=== PATIENT | female | born 1950 | race Caucasian/White ===

== ENCOUNTER 2017-02-12 11:21 | Inpatient (IN) | payer MEDICARE, BC ==
[~2017-02-12] VITALS: Ht 163.3 cm; Wt 96.4 kg
[2017-02-18] MEDS ORDERED: PANT40TA3 PO (12:09)
[2017-02-18] MEDS ORDERED: ASPI1TAB69 PO (12:09)
[2017-02-18] MEDS ORDERED: ZYRT10CA PO (12:09)
[2017-02-18] MEDS ORDERED: ZOCO20TA PO (12:09)
[2017-02-18] MEDS ORDERED: OMEG100037 PO (12:09)
[2017-02-18] MEDS ORDERED: MULTCAP13 PO (12:09)
[2017-02-18] MEDS ORDERED: TYLE650T9 PO (12:09)
[2017-03-11] MEDS ORDERED: HYDR-3288 PO (06:55)
[2017-03-11] MEDS ORDERED: ENOX40P SQ (06:56)
[2017-03-11] MEDS ORDERED: ASPI81CH37 CHEW (06:57)
[2017-03-11] MEDS ORDERED: ALUMINUM/MAGNESIUM/SIMETH 30 ML CUP PO PRN (07:00)
[2017-03-11] MEDS ORDERED: ACETAMINOPHEN/HYDROcodone 325 MG/7.5 MG TAB PO PRN (07:00)
[2017-03-11] MEDS ORDERED: ONDANSETRON HCL 4 MG/2 ML VIAL IVP PRN (07:00)
[2017-03-11] MEDS ORDERED: HYDROmorphone HCL PF 2 MG/ML VIAL IV PRN (07:00)
[2017-03-11] MEDS ORDERED: BISACODYL 10 MG SUPP RECTAL PRN (07:00)
[2017-03-11] MEDS ORDERED: Post-op Orders (for Pharmacy) MISC XX ONE (07:00)
[2017-03-11] MEDS ORDERED: SODIUM CHLORIDE 0.9% FLUSH 5 ML FLUSH IVF PRN (07:00)
[2017-03-11] MEDS ORDERED: PANTOPRAZOLE SOD 40 MG DELAYED RELEASE TAB PO PRN (07:00)
[2017-03-11] MEDS ORDERED: NALOXONE HCL 0.4 MG/ML AMP IV PRN (07:00)
[2017-03-11] MEDS ORDERED: ZOLPIDEM TARTRATE 5 MG TAB PO PRN (07:00)
[2017-03-11] MEDS ORDERED: POVIDONE IODINE 7.5% SCRUB 118 ML BOTTLE TOPICAL SCH (07:30)
[2017-03-11] MEDS ORDERED: TRANEXAMIC PERI-ARTICULAR 3,000 MG/NS 100 ML P-ARTICULR SCH ×2 (07:30)
[2017-03-11] MEDS ORDERED: ROPIVACAINE PERI-ARTICULAR INJECTION. P-ARTICULR SCH ×5 (07:30)
[2017-03-11] MEDS ORDERED: ceFAZolin 2 GM PREMIX 50 ML IV SCH (07:30)
[2017-03-11] MEDS ORDERED: SODIUM CHLORIDE 0.9% IV SCH (07:30)
[2017-03-11] MEDS ORDERED: VANCOMYCIN 1000 MG/NS 250 ML (for <70 kg) IV SCH ×2 (07:30)
[2017-03-11] MEDS ORDERED: TRANEXAMIC ACID IV SCH (07:30)
[2017-03-11] MEDS ORDERED: CHLORHEXIDINE GLUCONATE 4% SOLN 120 ML BTL TOPICAL SCH (07:30)
[2017-03-11] MEDS ORDERED: LACTATED RINGER'S 1000 ML IV PRN (07:45)
[2017-03-11] MEDS ORDERED: DEXAMETHASONE SOD PHOS 20 MG/5 ML VIAL IV ONE (07:45)
[2017-03-11] MEDS ORDERED: INSULIN HUMAN REGULAR 1,000 UNITS/10 ML VIAL SQ PRN (07:45)
[2017-03-11] MEDS ORDERED: SODIUM CHLORID 0.9% 500 ML IV PRN (07:45)
[2017-03-11] MEDS ORDERED: CHLORHEXIDINE GLUCONATE 2 % 1 PACK (2 CLOTHS) TOPICAL PRN (07:45)
[2017-03-11] MEDS ORDERED: METOPROLOL TARTRATE 25 MG TAB PO PRN (07:45)
[2017-03-11] MEDS ORDERED: POVIDONE IODINE 5% (ANTISEPSIS KIT) 4 APPLICATIONS EACH NARE PRN (07:45)
[2017-03-11] MEDS: SODIUM CHLOR 0.9% 1000 ML INJ 1,000 ML IV SCH ×3 (08:00→19:27)
[2017-03-11] MEDS ORDERED: GENTAMICIN SULFATE 80 MG/2 ML VIAL ONE (08:03)
[2017-03-11 08:06] VITALS: BP 117/72; PULSE 72; RESP 16; TEMP 98.4; O2SAT 96
[2017-03-11] MEDS ORDERED: CLINDAMYCIN INJ 900 MG in SODIUM CHLORIDE 0.9% INJ 100 ML IV SCH (08:15)
[2017-03-11] MEDS ORDERED: SODIUM CHLORIDE 0.9% INJ 100 ML ONE (08:38)
[2017-03-11] MEDS ORDERED: ONDANSETRON HCL 4 MG/2 ML VIAL IV PUSH ONE (09:40)
[2017-03-11] MEDS ORDERED: NEOSTIGMINE 3 MG/3 ML SYR IV ONE (09:40)
[2017-03-11] MEDS ORDERED: PROPOFOL 200 MG/20 ML AMP IV ONE (09:40)
[2017-03-11] MEDS ORDERED: fentaNYL CITRATE 250 MCG/5 ML AMP ONE (09:50)
[2017-03-11] MEDS ORDERED: ACETAMINOPHEN 1000 MG/100 ML VIAL IV ONE (09:50)
[2017-03-11] MEDS ORDERED: FAMOTIDINE 20 MG/2 ML VIAL ONE (09:50)
[2017-03-11] MEDS ORDERED: MIDAZOLAM HCL 2 MG/2 ML VIAL ONE (09:50)
[2017-03-11] MEDS ORDERED: DEXAMETHASONE SOD PHOS 4 MG/ML VIAL ONE (09:51)
[2017-03-11] MEDS ORDERED: BUPIVACAINE LIPOSOME PF 1.3% 20 ML VIAL NERV BLOCK ONE (12:04)
[2017-03-11] MEDS ORDERED: DO NOT ADM ANY ANTICOAGULANT DRUGS PRN (12:25)
[2017-03-11] MEDS ORDERED: MORPHINE SULFATE 4 MG/ML INJ ONE ×2 (12:36)
[2017-03-11] MEDS ORDERED: *morphine SULFATE 8 MG/ML PERIprocedure ONLY ONE (12:37)
[2017-03-11] MEDS ORDERED: *HYDROmorphone PF 1 MG VIAL PERIprocedural Use ONLY ONE ×3 (12:48→13:35)
--- NOTE | 2017-03-11 13:08 | HHI.DCPOC ---
Discharge Care Plan Diagnosis: (1) Primary localized osteoarthrosis, lower leg Your Health Problems Are: Difficulty with ADL Goals to Promote Your Health * To prevent worsening of your condition and complications * To maintain your health at the optimal level Directions to Meet Your Goals Take your medications as prescribed Follow your dietary instruction Follow activity as directed Keep your appointments as scheduled Take your immunizations and boosters as scheduled If your symptoms worsen call your PCP, if no PCP go to Urgent Care Center or Emergency Room Smoking is Dangerous to Your Health. Avoid second hand smoke Call the 24-hour hour crisis hotline for domestic abuse at [facility] March 11, 2017 13:08
--- NOTE | 2017-03-11 13:09 | HHI.FF ---
Face to Face Verification Diagnosis: (1) Primary localized osteoarthrosis, lower leg Physical Therapy Gait training, Safety evaluation, Transfer training, bed to chair Knee: Total knee, Protocol: Left, Full weight bearing Left LE Weight Bearing: WB as tolerated Nursing RN: 3 days/week x 2 weeks Nursing: Samantha teaching, Dressing changes Dressing Changes: Daily dressing change I have seen patient Rebecca Rasheed on 03/11/17. My clinical findings support the need for the requested home health care services because: Limited ability to care for self High risk of falls I certify that my clinical findings support that this patient is homebound because: Post-op weakness Unsteady gait/balance [facility] March 11, 2017 13:09
[2017-03-11] MEDS ORDERED: COMMODE 3-IN-11 MIS (13:11)
[2017-03-11] MEDS ORDERED: WALKER WHEELS/F1 MIS (13:11)
[2017-03-11] MEDS ORDERED: CPMMACHINE (13:11)
--- NOTE | 2017-03-11 13:28 | PD.CONS ---
[facility] By Reason for Consult medical management Primary Care Physician No Primary Care Physician Diagnoses: History of Present Illness patient is a 66 y/o female with osteoarthritis of the left knee underwent left total knee arthroplasty today. at the time of my evaluation she was complaining of moderate pain to the left knee and mild dizziness. otherwise no other complaints including chest pain, sob, nausea. Review of Systems Constitutional: COMPLAINS OF: Dizziness, DENIES: Fever, Weight loss, Chills, Night Sweats Eyes: DENIES: Blurred vision, Diplopia, Vision loss, Double Vision Ears, nose, mouth, throat: DENIES: Tinnitus, Vertigo, Throat pain, Epistaxis Respiratory: DENIES: Apneas, Cough, Snoring, Wheezing, Hemoptysis, Sputum production, Shortness of breath Cardiovascular: DENIES: Chest pain, Palpitations, Syncope, Dyspnea on Exertion , PND, Lower Extremity Edema, Orthopnea, Claudication Gastrointestinal: DENIES: Abdominal pain, Black stools, Bloody stools, Constipation, Diarrhea, Nausea, Vomiting, Difficulty Swallowing, Anorexia Genitourinary: DENIES: Urinary frequency, Urgency, Hematuria, Dysuria Musculoskeletal: COMPLAINS OF: Joint pain (left knee), DENIES: Muscle aches, Stiffness, Joint Swelling Integumentary: DENIES: Rash Neurologic: DENIES: Abnormal gait, Headache, Localized weakness, Paresthesias, Seizures, Speech Problems, Tremor, Poor Balance Psychiatric: DENIES: Anxiety, Confusion, Mood changes, Depression, Hallucinations, Agitation, Suicidal Ideation, Homicidal Ideation, Delusions Past Family Social History Allergies: Coded Allergies: Bromfed DM (Verified Allergy, Severe, RASH, 03/11/17) Lamisil (Verified Allergy, Severe, RASH, 03/11/17) Omnicef (Verified Allergy, Severe, RASH, 03/11/17) Zantac (Verified Allergy, Severe, RASH, 03/11/17) Past Medical History dyslipidemia osteoarthritis Past Surgical History zocor zyrtec Reported Medications Current Medications Pantoprazole Sodium 40 mg 40 mg DAILY PRN PO REFLUX; Start 03/11/17 at 07:00 Sodium Chloride (NS 1000 ml Inj) 1,000 ml @ 100 mls/hr Q10H IV Last administered on 03/11/17t 12:55; Start 03/11/17 at 06:52 IV Flush (NS Flush) 2 ml UNSCH PRN IVF FLUSH AFTER USING IV ACCESS; Start at 07:00 IV Flush 2 ml 2 ml BID IVF ; Start 03/11/17 at 09:00 Clindamycin Phosphate/Sodium Chloride (Cleocin Inj/NS Inj) 106 ml @ 212 mls/hr Q8H IV ; Start 03/11/17 at 17:00; Stop 03/12/17 at 09:29 Miscellaneous Information (Post-op Orders (for Pharmacy)) STAT ONCE XX ; Start 03/11/17 at 07:00; Stop 03/11/17 at 13:04; Status DC Enoxaparin Sodium (Lovenox Inj) 40 mg Q24H SQ ; Start 03/12/17 at 11:30; Stop 09/27 at 11:31 Hydromorphone HCl (Dilaudid Pf Inj) 1 mg Q3H PRN IV PAIN GREATER THAN 7; Start 03/11/17 at 07:00 Acetaminophen/ Hydrocodone Bitart (Mascot 7.5-325 Mg) 1 tab Q4H PRN PO PAIN LESS THAN 5 ON SCALE; Start 03/11/17 at 07:00 Acetaminophen/ Hydrocodone Bitart (Mascot 7.5-325 Mg) 2 tab Q4H PRN PO PAIN SCALE 5 TO 10; Start 03/11/17 at 07:00 Multivitamins/ Minerals Therapeutic (Theragran M Tab) 1 tab BID PO ; Start at 21:00; Stop 05/11/17 at 20:59 Ondansetron HCl (Zofran Inj) 4 mg Q6H PRN IVP NAUSEA OR VOMITING; Start at 07:00 Docusate Sodium (Colace) 100 mg BID PO ; Start 03/12/17 at 21:00 Al Hydrox/Mg Hydrox/Simethicone (Mag-Al Plus Susp Liq) 30 ml Q6H PRN PO INDIGESTION; Start 03/11/17 at 07:00 Zolpidem Tartrate (Ambien) 5 mg HS PRN PO SLEEP; Start 03/11/17 at 07:00 Bisacodyl (Dulcolax Supp) 10 mg DAILY PRN RECTAL CONSTIPATION; Start 03/11/17 at 07:00 Naloxone HCl (Narcan Inj) 0.4 mg UNSCH PRN IV RESPIRATORY RATE LESS THAN 10; Start 03/11/17 at 07:00 Diphenhydramine HCl (Benadryl Inj) 25 mg Q6H PRN IV ITCHING; Start 03/11/17 at 07:00 Povidone Iodine (Betadine 7.5% Scrub) 1 applic ONCE TOPICAL ; Start 03/11/17 at 07:30; Stop 03/14/17 at 07:29 Chlorhexidine Gluconate 1 applic 1 applic ONCE TOPICAL ; Start 03/11/17 at 07:30 ; Stop 03/14/17 at 07:29 Cefazolin Sodium/ Dextrose 50 ml @ 100 mls/hr PROJECT/PRODUCTION MANAGER IMAGING IV ; Start 03/11/17 at 07 :30; Stop 03/11/17 at 08:07; Status DC Vancomycin HCl 1000 mg/Sodium Chloride 250 ml @ 250 mls/hr PROJECT/PRODUCTION MANAGER IMAGING IV Last administered on 03/11/17 09:08; Start 03/11/17 at 07:30; Stop 03/14/17 at 07:29 Tranexamic Acid 1359 mg/Sodium Chloride 113.59 ml @ 200 mls/ hr ONCE IV Last administered on 03/11/17 10:14; Start 03/11/17 at 07:30; Stop 03/11/17 at 16:00 Ropivacaine 24.63 ml/Ketorolac Tromethamine 30 mg/Epinephrine HCl 0.5 mg/ Clonidine 80 mcg/ Sodium Chloride 100 ml @ 200 mls/hr ONCE P-ARTICULR Last administered on 03/11/17 11:10; Start 03/11/17 at 07:30; Stop 03/12/17 at 07:29 Tranexamic Acid/ Sodium Chloride (Cyklokapron Inj/ NS Inj) 130 ml @ 260 mls/hr ONCE P-ARTICULR Last administered on 03/11/17 11:11; Start 03/11/17 at 07:30; Stop 03/12/17 at 07:29 Dexamethasone Sodium Phosphate 10 mg 10 mg ONCE ONCE IV Last administered on 08:25; Start 03/11/17 at 07:45; Stop 03/11/17 at 07:46; Status DC Lactated Ringer's 1,000 ml @ 30 mls/hr Q24H PRN IV SEE LABEL COMMENTS; Start at 07:45; Stop 03/11/17 at 13:06; Status DC Sodium Chloride (NS 500 ml Inj) 500 ml @ 30 mls/hr [id number] PRN IV SEE LABEL COMMENTS; Start 03/11/17 at 07:45; Stop 03/11/17 at 13:06; Status DC Metoprolol Tartrate (Lopressor) 25 mg PROJECT/PRODUCTION MANAGER IMAGING PRN PO SEE LABEL COMMENTS; Start 03/11/17 at 07:45; Stop 03/14/17 at 07:44 Povidone Iodine (Betadine 5% Antisepsis Kit) 1 applic PROJECT/PRODUCTION MANAGER IMAGING PRN EACH NARE SEE LABEL COMMENTS; Start 03/11/17 at 07:45; Stop 03/14/17 at 07:44 Chlorhexidine Gluconate (Chlorhexidine 2% Cloth) 3 pack PROJECT/PRODUCTION MANAGER IMAGING PRN TOPICAL SEE LABEL COMMENTS; Start 03/11/17 at 07:45; Stop 03/14/17 at 07:44 Insulin Human Regular (NovoLIN R INJ) See Protocol Table ... PROJECT/PRODUCTION MANAGER IMAGING PRN SQ SEE PROTOCOL TABLE; Start 03/11/17 at 07:45; Stop 03/14/17 at 07:44 Gentamicin Sulfate 240 mg 240 mg STK-MED ONCE .ROUTE Last administered on t 11:10; Start 03/11/17 at 08:03; Stop 03/11/17 at 08:05; Status DC Clindamycin Phosphate 900 mg/ Sodium Chloride 106 ml @ 212 mls/hr PROJECT/PRODUCTION MANAGER IMAGING IV Last administered on 03/11/17t 09:00; Start 03/11/17 at 08:15 Sodium Chloride (NS Inj) 100 ml @ As Directed STK-MED ONCE .ROUTE ; Start at 08:38; Stop 03/11/17 at 08:39; Status DC Acetaminophen (Ofirmev Inj) 1,000 mg STK-MED ONCE IV ; Start 03/11/17 at 09:50; Stop 03/11/17 at 09:51; Status DC Famotidine (Pepcid Inj) 20 mg STK-MED ONCE .ROUTE ; Start 03/11/17 at 09:50; Stop 03/11/17 at 09:51; Status DC Midazolam HCl (Versed Inj) 2 mg STK-MED ONCE .ROUTE ; Start 03/11/17 at 09:50; Stop 03/11/17 at 09:51; Status DC Fentanyl Citrate (fentaNYL INJ) 250 mcg STK-MED ONCE .ROUTE ; Start 03/11/17 at 09:50; Stop 03/11/17 at 09:51; Status DC Dexamethasone Sodium Phosphate (Decadron Inj) 4 mg STK-MED ONCE .ROUTE ; Start 03/11/17 at 09:51; Stop 03/11/17 at 09:52; Status DC Morphine Sulfate (Morphine Inj) 4 mg STK-MED ONCE .ROUTE ; Start 03/11/17 at 12: 36; Stop 03/11/17 at 12:37; Status DC Morphine Sulfate (Morphine Inj) 4 mg STK-MED ONCE .ROUTE ; Start 03/11/17 at 12: 36; Stop 03/11/17 at 12:37; Status DC Morphine Sulfate (*morphine INJ PERIprocedure ONLY) 8 mg STK-MED ONCE .ROUTE Last administered on 03/11/17 12:39; Start 03/11/17 at 12:37; Stop 03/11/17 at 12: 38; Status DC Hydromorphone HCl (*DILAUDID PF INJ PERIprocedural ONLY) 1 mg STK-MED ONCE .ROUTE Last administered on 03/11/17 12:49; Start 03/11/17 at 12:48; Stop at 12:49; Status DC Hydromorphone HCl (*DILAUDID PF INJ PERIprocedural ONLY) 1 mg STK-MED ONCE .ROUTE Last administered on 03/11/17 13:00; Start 03/11/17 at 12:59; Stop at 13:00; Status DC Miscellaneous Information ALL NURSING DEPARTME... UNSCH PRN .XX SEE LABEL COMMENTS; Start 03/11/17 at 12:25; Stop 03/12/17 at 12:24 Active Ordered Medications Current Medications Pantoprazole Sodium 40 mg 40 mg DAILY PRN PO REFLUX; Start 03/11/17 at 07:00 Sodium Chloride (NS 1000 ml Inj) 1,000 ml @ 100 mls/hr Q10H IV Last administered on 03/11/17 12:55; Start 03/11/17 at 06:52 IV Flush (NS Flush) 2 ml UNSCH PRN IVF FLUSH AFTER USING IV ACCESS; Start at 07:00 IV Flush 2 ml 2 ml BID IVF ; Start 03/11/17 at 09:00 Clindamycin Phosphate/Sodium Chloride (Cleocin Inj/NS Inj) 106 ml @ 212 mls/hr Q8H IV ; Start 03/11/17 at 17:00; Stop 03/12/17 at 09:29 Miscellaneous Information (Post-op Orders (for Pharmacy)) STAT ONCE XX ; Start 03/11/17 at 07:00; Stop 03/11/17 at 13:04; Status DC Enoxaparin Sodium (Lovenox Inj) 40 mg Q24H SQ ; Start 03/12/17 at 11:30; Stop 09/27 at 11:31 Hydromorphone HCl (Dilaudid Pf Inj) 1 mg Q3H PRN IV PAIN GREATER THAN 7; Start 03/11/17 at 07:00 Acetaminophen/ Hydrocodone Bitart (Mascot 7.5-325 Mg) 1 tab Q4H PRN PO PAIN LESS THAN 5 ON SCALE; Start 03/11/17 at 07:00 Acetaminophen/ Hydrocodone Bitart (Mascot 7.5-325 Mg) 2 tab Q4H PRN PO PAIN SCALE 5 TO 10; Start 03/11/17 at 07:00 Multivitamins/ Minerals Therapeutic (Theragran M Tab) 1 tab BID PO ; Start at 21:00; Stop 05/11/17 at 20:59 Ondansetron HCl (Zofran Inj) 4 mg Q6H PRN IVP NAUSEA OR VOMITING; Start at 07:00 Docusate Sodium (Colace) 100 mg BID PO ; Start 03/12/17 at 21:00 Al Hydrox/Mg Hydrox/Simethicone (Mag-Al Plus Susp Liq) 30 ml Q6H PRN PO INDIGESTION; Start 03/11/17 at 07:00 Zolpidem Tartrate (Ambien) 5 mg HS PRN PO SLEEP; Start 03/11/17 at 07:00 Bisacodyl (Dulcolax Supp) 10 mg DAILY PRN RECTAL CONSTIPATION; Start 03/11/17 at 07:00 Naloxone HCl (Narcan Inj) 0.4 mg UNSCH PRN IV RESPIRATORY RATE LESS THAN 10; Start 03/11/17 at 07:00 Diphenhydramine HCl (Benadryl Inj) 25 mg Q6H PRN IV ITCHING; Start 03/11/17 at 07:00 Povidone Iodine (Betadine 7.5% Scrub) 1 applic ONCE TOPICAL ; Start 03/11/17 at 07:30; Stop 03/14/17 at 07:29 Chlorhexidine Gluconate 1 applic 1 applic ONCE TOPICAL ; Start 03/11/17 at 07:30 ; Stop 03/14/17 at 07:29 Cefazolin Sodium/ Dextrose 50 ml @ 100 mls/hr PROJECT/PRODUCTION MANAGER IMAGING IV ; Start 03/11/17 at 07 :30; Stop 03/11/17 at 08:07; Status DC Vancomycin HCl 1000 mg/Sodium Chloride 250 ml @ 250 mls/hr PROJECT/PRODUCTION MANAGER IMAGING IV Last administered on 03/11/17 09:08; Start 03/11/17 at 07:30; Stop 03/14/17 at 07:29 Tranexamic Acid 1359 mg/Sodium Chloride 113.59 ml @ 200 mls/ hr ONCE IV Last administered on 03/11/17 10:14; Start 03/11/17 at 07:30; Stop 03/11/17 at 16:00 Ropivacaine 24.63 ml/Ketorolac Tromethamine 30 mg/Epinephrine HCl 0.5 mg/ Clonidine 80 mcg/ Sodium Chloride 100 ml @ 200 mls/hr ONCE P-ARTICULR Last administered on 03/11/17 11:10; Start 03/11/17 at 07:30; Stop 03/12/17 at 07:29 Tranexamic Acid/ Sodium Chloride (Cyklokapron Inj/ NS Inj) 130 ml @ 260 mls/hr ONCE P-ARTICULR Last administered on 03/11/17 11:11; Start 03/11/17 at 07:30; Stop 03/12/17 at 07:29 Dexamethasone Sodium Phosphate 10 mg 10 mg ONCE ONCE IV Last administered on 08:25; Start 03/11/17 at 07:45; Stop 03/11/17 at 07:46; Status DC Lactated Ringer's 1,000 ml @ 30 mls/hr Q24H PRN IV SEE LABEL COMMENTS; Start at 07:45; Stop 03/11/17 at 13:06; Status DC Sodium Chloride (NS 500 ml Inj) 500 ml @ 30 mls/hr [id number] PRN IV SEE LABEL COMMENTS; Start 03/11/17 at 07:45; Stop 03/11/17 at 13:06; Status DC Metoprolol Tartrate (Lopressor) 25 mg PROJECT/PRODUCTION MANAGER IMAGING PRN PO SEE LABEL COMMENTS; Start 03/11/17 at 07:45; Stop 03/14/17 at 07:44 Povidone Iodine (Betadine 5% Antisepsis Kit) 1 applic PROJECT/PRODUCTION MANAGER IMAGING PRN EACH NARE SEE LABEL COMMENTS; Start 03/11/17 at 07:45; Stop 03/14/17 at 07:44 Chlorhexidine Gluconate (Chlorhexidine 2% Cloth) 3 pack PROJECT/PRODUCTION MANAGER IMAGING PRN TOPICAL SEE LABEL COMMENTS; Start 03/11/17 at 07:45; Stop 03/14/17 at 07:44 Insulin Human Regular (NovoLIN R INJ) See Protocol Table ... PROJECT/PRODUCTION MANAGER IMAGING PRN SQ SEE PROTOCOL TABLE; Start 03/11/17 at 07:45; Stop 03/14/17 at 07:44 Gentamicin Sulfate 240 mg 240 mg STK-MED ONCE .ROUTE Last administered on t 11:10; Start 03/11/17 at 08:03; Stop 03/11/17 at 08:05; Status DC Clindamycin Phosphate 900 mg/ Sodium Chloride 106 ml @ 212 mls/hr PROJECT/PRODUCTION MANAGER IMAGING IV Last administered on 03/11/17t 09:00; Start 03/11/17 at 08:15 Sodium Chloride (NS Inj) 100 ml @ As Directed STK-MED ONCE .ROUTE ; Start at 08:38; Stop 03/11/17 at 08:39; Status DC Acetaminophen (Ofirmev Inj) 1,000 mg STK-MED ONCE IV ; Start 03/11/17 at 09:50; Stop 03/11/17 at 09:51; Status DC Famotidine (Pepcid Inj) 20 mg STK-MED ONCE .ROUTE ; Start 03/11/17 at 09:50; Stop 03/11/17 at 09:51; Status DC Midazolam HCl (Versed Inj) 2 mg STK-MED ONCE .ROUTE ; Start 03/11/17 at 09:50; Stop 03/11/17 at 09:51; Status DC Fentanyl Citrate (fentaNYL INJ) 250 mcg STK-MED ONCE .ROUTE ; Start 03/11/17 at 09:50; Stop 03/11/17 at 09:51; Status DC Dexamethasone Sodium Phosphate (Decadron Inj) 4 mg STK-MED ONCE .ROUTE ; Start 03/11/17 at 09:51; Stop 03/11/17 at 09:52; Status DC Morphine Sulfate (Morphine Inj) 4 mg STK-MED ONCE .ROUTE ; Start 03/11/17 at 12: 36; Stop 03/11/17 at 12:37; Status DC Morphine Sulfate (Morphine Inj) 4 mg STK-MED ONCE .ROUTE ; Start 03/11/17 at 12: 36; Stop 03/11/17 at 12:37; Status DC Morphine Sulfate (*morphine INJ PERIprocedure ONLY) 8 mg STK-MED ONCE .ROUTE Last administered on 03/11/17 12:39; Start 03/11/17 at 12:37; Stop 03/11/17 at 12: 38; Status DC Hydromorphone HCl (*DILAUDID PF INJ PERIprocedural ONLY) 1 mg STK-MED ONCE .ROUTE Last administered on 03/11/17 12:49; Start 03/11/17 at 12:48; Stop at 12:49; Status DC Hydromorphone HCl (*DILAUDID PF INJ PERIprocedural ONLY) 1 mg STK-MED ONCE .ROUTE Last administered on 03/11/17 13:00; Start 03/11/17 at 12:59; Stop at 13:00; Status DC Miscellaneous Information ALL NURSING DEPARTME... UNSCH PRN .XX SEE LABEL COMMENTS; Start 03/11/17 at 12:25; Stop 03/12/17 at 12:24 Family History not relevant to this consult. Social History drinks occasionally- quit smoking years ago. Physical Exam Vital Signs Vital Signs Date Time Temp Pulse Resp B/P Pulse Ox O2 Delivery O2 Flow Rate FiO2 03/11/17 13:00 74 20 115/60 96 Nasal Cannula 2.5 03/11/17 12:45 75 14 112/59 97 Nasal Cannula 2.5 03/11/17 12:30 82 14 127/64 98 Nasal Cannula 2.5 03/11/17 12:29 97.7 81 14 125/61 98 Nasal Cannula 2.5 03/11/17 08:06 98.4 72 16 117/72 96 Physical Exam GENERAL: This is a well-nourished, well-developed patient, in no apparent distress. SKIN: No rashes, ecchymoses or lesions. Cool and dry. HEAD: Atraumatic. Normocephalic. No temporal or scalp tenderness. EYES: Pupils equal round and reactive. Extraocular motions intact. No scleral icterus. No injection or drainage. ENT: Nose without bleeding, purulent drainage or septal hematoma. Throat without erythema, tonsillar hypertrophy or exudate. Uvula midline. Airway patent. NECK: Trachea midline. No JVD or lymphadenopathy. Supple, nontender, no meningeal signs. CARDIOVASCULAR: Regular rate and rhythm without murmurs, gallops, or rubs. RESPIRATORY: Clear to auscultation. Breath sounds equal bilaterally. No wheezes , rales, or rhonchi. GASTROINTESTINAL: Abdomen soft, non-tender, nondistended. No hepato-splenomegaly , or palpable masses. No guarding. MUSCULOSKELETAL: left knee covered with clean dressing. NEUROLOGICAL: Awake and alert. Cranial nerves II through XII intact. Motor and sensory grossly within normal limits. Five out of 5 muscle strength in all muscle groups. Normal speech. Laboratory Laboratory Tests Test 03/11/17 08:00 Blood Type A NEGATIVE Antibody Screen NEGATIVE Blood Bank Comment Assessment and Plan Assessment and Plan A/P - osteoarthritis of the left knee- s/p left total knee replacement continue pain control and PT- management per ortho. -dyslipidemia; resume home meds upon discharge -DVT prophylaxis with subq Lovenox- per ortho thank you for the consult. Discussed Condition With the patient. Paige Moreira MD March 11, 2017 13:27
--- NOTE | 2017-03-11 13:37 | RADRPT ---
EXAM DATE/TIME: 03/11/2017 12:55 [facility] COMPARISON: No previous studies available for comparison. INDICATIONS : Post operative left knee. MEDICAL HISTORY : None. SURGICAL HISTORY : None. ENCOUNTER: Initial ACUITY: 1 day PAIN SCORE: Non-responsive. LOCATION: Left knee. FINDINGS: Left total knee arthroplasty is present. Hardware is intact. Alignment is anatomic. CONCLUSION: Satisfactory appearance post left TKA Frank Rivas MD on March 11, 2017 at 13:34 Board Certified Radiologist. This report was verified electronically.
[2017-03-11 14:30] VITALS: BP 104/65; PULSE 82; RESP 18; TEMP 97; O2SAT 99
[2017-03-11] MEDS: ACETAMINOPHEN/HYDROcodone 325 MG/7.5 MG TAB PO PRN ×2 (15:33→21:58)
[2017-03-11 16:20] VITALS: O2SAT 95
[2017-03-11] MEDS: CLINDAMYCIN INJ 900 MG in SODIUM CHLORIDE 0.9% INJ 100 ML IV SCH (17:32)
[2017-03-11 19:00] VITALS: BP 114/61; PULSE 70; RESP 19; TEMP 96.5; O2SAT 100
[2017-03-11] MEDS: SODIUM CHLORIDE 0.9% FLUSH 5 ML FLUSH IVF SCH (19:27)
[2017-03-11 23:35] VITALS: BP 103/60; PULSE 72; RESP 18; TEMP 96.8; O2SAT 96
[2017-03-12] VITALS (7 sets, daily range): BP systolic 92–143; BP diastolic 55–71; PULSE 69–96; RESP 17–18; TEMP 96.5–99.4; O2SAT 95–99
[2017-03-12] MEDS: CLINDAMYCIN INJ 900 MG in SODIUM CHLORIDE 0.9% INJ 100 ML IV SCH ×2 (00:28→08:23)
[2017-03-12] MEDS: ACETAMINOPHEN/HYDROcodone 325 MG/7.5 MG TAB PO PRN ×4 (06:05→22:14)
[2017-03-12] MEDS: MAGNESIUM HYDROXIDE SUSP 30 ML CUP PO PRN ×2 (06:05→19:18)
--- NOTE | 2017-03-12 08:20 | PD.ORT.PN ---
Subjective Post Op Day #: 1 Subjective Remarks pain tolerable. Objective Vitals Vital Signs Date Time Temp Pulse Resp B/P Pulse Ox O2 Delivery O2 Flow Rate FiO2 03/12/17 07:40 96.5 69 18 96/60 96 03/12/17 03:47 96.7 76 17 109/66 97 03/11/17 23:35 96.8 72 18 103/60 96 03/11/17 19:26 100 Nasal Cannula 3.00 03/11/17 19:00 96.5 70 19 114/61 100 03/11/17 16:20 95 Nasal Cannula 3.00 03/11/17 15:46 Nasal Cannula 3.00 03/11/17 14:30 97.0 82 18 104/65 99 03/11/17 13:30 97.5 76 16 112/60 96 Nasal Cannula 2.5 03/11/17 13:15 71 16 121/68 95 Nasal Cannula 2.5 03/11/17 13:00 74 20 115/60 96 Nasal Cannula 2.5 03/11/17 12:45 75 14 112/59 97 Nasal Cannula 2.5 03/11/17 12:30 82 14 127/64 98 Nasal Cannula 2.5 03/11/17 12:29 97.7 81 14 125/61 98 Nasal Cannula 2.5 I/O 03/11/17 03/11/17 03/11/17 03/12/17 03/12/17 03/12/17 07:00 15:00 23:00 07:00 15:00 23:00 Intake Total 1500 ml 892 ml 1216 ml Output Total 625 ml 450 ml 1900 ml Balance 875 ml 442 ml -684 ml Intake Oral 480 ml 240 ml IV Total 200 ml 412 ml 976 ml Other 1300 ml Output Urine Total 425 ml 450 ml 1900 ml Estimated Blood Loss 200 ml # Bowel Movements 0 Objective Remarks in bed, nad incision no erythema, no drainage neg homans nvi Assessment & Plan Ortho Post Op Day #: 1 Problem List: Assessment and Plan s/p L TKA wbat daily dressing changes lovenox rx in chart PT d/c planning home with [facility] and pt f/up [facility] Gayle March 12, 2017 08:20
[2017-03-12] MEDS: SODIUM CHLORIDE 0.9% FLUSH 5 ML FLUSH IVF SCH ×2 (08:23→19:18)
[2017-03-12 08:41] LABS: HEMATOCRIT 32.9 % (35.0-46.0); MEAN CELL VOLUME 89.7 FL (80.0-100.0); MEAN CORPUSCULAR HEMOGLOBIN 30.1 PG (27.0-34.0); MEAN CORPUSCULAR HGB CONC 33.5 % (32.0-36.0); PLATELET COUNT 219 TH/MM3 (150-450); RED BLOOD COUNT 3.67 MIL/MM3 (4.00-5.30); RED CELL DISTRIBUTION WIDTH 13.3 % (11.6-17.2); REVIEW FLAG FINAL; WHITE BLOOD COUNT 10.8 TH/MM3 (4.0-11.0)
[2017-03-12 09:10] LABS: BICARBONATE 26.7 MEQ/L (21.0-32.0); POTASSIUM 3.7 MEQ/L (3.5-5.1)
--- NOTE | 2017-03-12 09:32 | HHI.PR ---
Subjective Remarks in no acute distress. pain to the left knee fairly controlled. no other complaints. Objective Vitals Vital Signs Date Time Temp Pulse Resp B/P Pulse Ox O2 Delivery O2 Flow Rate FiO2 03/12/17 09:14 96 Nasal Cannula 3.00 03/12/17 07:40 96.5 69 18 96/60 96 03/12/17 03:47 96.7 76 17 109/66 97 03/11/17 23:35 96.8 72 18 103/60 96 03/11/17 19:26 100 Nasal Cannula 3.00 03/11/17 19:00 96.5 70 19 114/61 100 03/11/17 16:20 95 Nasal Cannula 3.00 03/11/17 15:46 Nasal Cannula 3.00 03/11/17 14:30 97.0 82 18 104/65 99 03/11/17 13:30 97.5 76 16 112/60 96 Nasal Cannula 2.5 03/11/17 13:15 71 16 121/68 95 Nasal Cannula 2.5 03/11/17 13:00 74 20 115/60 96 Nasal Cannula 2.5 03/11/17 12:45 75 14 112/59 97 Nasal Cannula 2.5 03/11/17 12:30 82 14 127/64 98 Nasal Cannula 2.5 03/11/17 12:29 97.7 81 14 125/61 98 Nasal Cannula 2.5 I/O 03/11/17 03/11/17 03/11/17 03/12/17 03/12/17 03/12/17 07:00 15:00 23:00 07:00 15:00 23:00 Intake Total 1500 ml 892 ml 1216 ml Output Total 625 ml 450 ml 1900 ml Balance 875 ml 442 ml -684 ml Intake Oral 480 ml 240 ml IV Total 200 ml 412 ml 976 ml Other 1300 ml Output Urine Total 425 ml 450 ml 1900 ml Estimated Blood Loss 200 ml # Bowel Movements 0 Result Diagram: 03/12/17 0807 03/12/17 0807 Imaging Last Impressions Knee X-Ray 03/11/17 0652 Signed Impressions: Service Date/Time: Saturday, March 11, 2017 12:55 - CONCLUSION: Satisfactory appearance post left TKA Frank Rivas MD Objective Remarks GENERAL: This is a well-nourished, well-developed patient, in no apparent distress. CARDIOVASCULAR: Regular rate and regular rhythm without murmurs, gallops, or rubs. RESPIRATORY: Clear to auscultation. Breath sounds equal bilaterally. No wheezes , rales, or rhonchi. GASTROINTESTINAL: Abdomen soft, non-tender, nondistended. Normal, active bowel sounds MUSCULOSKELETAL: left knee covered with clean dressing. NEURO: Alert & Oriented x4 to person, place, time, situation. Moves all ext x4 Medications and IVs Current Medications Pantoprazole Sodium 40 mg 40 mg DAILY PRN PO REFLUX; Start 03/11/17 at 07:00 Sodium Chloride (NS 1000 ml Inj) 1,000 ml @ 100 mls/hr Q10H IV Last administered on 03/11/17 19:27; Start 03/11/17 at 06:52 IV Flush (NS Flush) 2 ml UNSCH PRN IVF FLUSH AFTER USING IV ACCESS; Start at 07:00 IV Flush 2 ml 2 ml BID IVF ; Start 03/11/17 at 09:00 Clindamycin Phosphate/Sodium Chloride (Cleocin Inj/NS Inj) 106 ml @ 212 mls/hr Q8H IV Last administered on 03/12/17 08:23; Start 03/11/17 at 17:00; Stop at 09:29; Status DC Miscellaneous Information (Post-op Orders (for Pharmacy)) STAT ONCE XX ; Start 03/11/17 at 07:00; Stop 03/11/17 at 13:04; Status DC Enoxaparin Sodium (Lovenox Inj) 40 mg Q24H SQ ; Start 03/12/17 at 11:30; Stop 09/27 at 11:31 Hydromorphone HCl (Dilaudid Pf Inj) 1 mg Q3H PRN IV PAIN GREATER THAN 7; Start 03/11/17 at 07:00 Acetaminophen/ Hydrocodone Bitart ([place] 7.5-325 Mg) 1 tab Q4H PRN PO PAIN LESS THAN 5 ON SCALE; Start 03/11/17 at 07:00 Acetaminophen/ Hydrocodone Bitart ([place] 7.5-325 Mg) 2 tab Q4H PRN PO PAIN SCALE 5 TO 10 Last administered on 03/12/17 06:05; Start 03/11/17 at 07:00 Multivitamins/ Minerals Therapeutic (Theragran M Tab) 1 tab BID PO ; Start at 21:00; Stop 05/11/17 at 20:59 Ondansetron HCl (Zofran Inj) 4 mg Q6H PRN IVP NAUSEA OR VOMITING; Start at 07:00 Docusate Sodium (Colace) 100 mg BID PO ; Start 03/12/17 at 21:00 Al Hydrox/Mg Hydrox/Simethicone (Mag-Al Plus Susp Liq) 30 ml Q6H PRN PO INDIGESTION; Start 03/11/17 at 07:00 Zolpidem Tartrate (Ambien) 5 mg HS PRN PO SLEEP; Start 03/11/17 at 07:00 Bisacodyl (Dulcolax Supp) 10 mg DAILY PRN RECTAL CONSTIPATION; Start 03/11/17 at 07:00 Naloxone HCl (Narcan Inj) 0.4 mg UNSCH PRN IV RESPIRATORY RATE LESS THAN 10; Start 03/11/17 at 07:00 Diphenhydramine HCl (Benadryl Inj) 25 mg Q6H PRN IV ITCHING; Start 03/11/17 at 07:00 Povidone Iodine (Betadine 7.5% Scrub) 1 applic ONCE TOPICAL ; Start 03/11/17 at 07:30; Stop 03/14/17 at 07:29 Chlorhexidine Gluconate 1 applic 1 applic ONCE TOPICAL ; Start 03/11/17 at 07:30 ; Stop 03/14/17 at 07:29 Cefazolin Sodium/ Dextrose 50 ml @ 100 mls/hr CUSTOMER ENGINEERING SPECIALIST IV ; Start 03/11/17 at 07 :30; Stop 03/11/17 at 08:07; Status DC Vancomycin HCl 1000 mg/Sodium Chloride 250 ml @ 250 mls/hr CUSTOMER ENGINEERING SPECIALIST IV Last administered on 03/11/17 09:08; Start 03/11/17 at 07:30; Stop 03/14/17 at 07:29 Tranexamic Acid 1359 mg/Sodium Chloride 113.59 ml @ 200 mls/ hr ONCE IV Last administered on 03/11/17 10:14; Start 03/11/17 at 07:30; Stop 03/11/17 at 16:00; Status DC Ropivacaine 24.63 ml/Ketorolac Tromethamine 30 mg/Epinephrine HCl 0.5 mg/ Clonidine 80 mcg/ Sodium Chloride 100 ml @ 200 mls/hr ONCE P-ARTICULR Last administered on 03/11/17 11:10; Start 03/11/17 at 07:30; Stop 03/12/17 at 07:29; Status DC Tranexamic Acid/ Sodium Chloride (Cyklokapron Inj/ NS Inj) 130 ml @ 260 mls/hr ONCE P-ARTICULR Last administered on 03/11/17 11:11; Start 03/11/17 at 07:30; Stop 03/12/17 at 07:29; Status DC Dexamethasone Sodium Phosphate 10 mg 10 mg ONCE ONCE IV Last administered on 08:25; Start 03/11/17 at 07:45; Stop 03/11/17 at 07:46; Status DC Lactated Ringer's 1,000 ml @ 30 mls/hr Q24H PRN IV SEE LABEL COMMENTS; Start at 07:45; Stop 03/11/17 at 13:06; Status DC Sodium Chloride (NS 500 ml Inj) 500 ml @ 30 mls/hr [id number] PRN IV SEE LABEL COMMENTS; Start 03/11/17 at 07:45; Stop 03/11/17 at 13:06; Status DC Metoprolol Tartrate (Lopressor) 25 mg CUSTOMER ENGINEERING SPECIALIST PRN PO SEE LABEL COMMENTS; Start 03/11/17 at 07:45; Stop 03/14/17 at 07:44 Povidone Iodine (Betadine 5% Antisepsis Kit) 1 applic CUSTOMER ENGINEERING SPECIALIST PRN EACH NARE SEE LABEL COMMENTS; Start 03/11/17 at 07:45; Stop 03/14/17 at 07:44 Chlorhexidine Gluconate (Chlorhexidine 2% Cloth) 3 pack CUSTOMER ENGINEERING SPECIALIST PRN TOPICAL SEE LABEL COMMENTS; Start 03/11/17 at 07:45; Stop 03/14/17 at 07:44 Insulin Human Regular (NovoLIN R INJ) See Protocol Table ... CUSTOMER ENGINEERING SPECIALIST PRN SQ SEE PROTOCOL TABLE; Start 03/11/17 at 07:45; Stop 03/14/17 at 07:44 Gentamicin Sulfate 240 mg 240 mg STK-MED ONCE .ROUTE Last administered on 11:10; Start 03/11/17 at 08:03; Stop 03/11/17 at 08:05; Status DC Clindamycin Phosphate 900 mg/ Sodium Chloride 106 ml @ 212 mls/hr CUSTOMER ENGINEERING SPECIALIST IV Last administered on 03/11/17t 09:00; Start 03/11/17 at 08:15 Sodium Chloride (NS Inj) 100 ml @ As Directed STK-MED ONCE .ROUTE ; Start at 08:38; Stop 03/11/17 at 08:39; Status DC Acetaminophen (Ofirmev Inj) 1,000 mg STK-MED ONCE IV ; Start 03/11/17 at 09:50; Stop 03/11/17 at 09:51; Status DC Famotidine (Pepcid Inj) 20 mg STK-MED ONCE .ROUTE ; Start 03/11/17 at 09:50; Stop 03/11/17 at 09:51; Status DC Midazolam HCl (Versed Inj) 2 mg STK-MED ONCE .ROUTE ; Start 03/11/17 at 09:50; Stop 03/11/17 at 09:51; Status DC Fentanyl Citrate (fentaNYL INJ) 250 mcg STK-MED ONCE .ROUTE ; Start 03/11/17 at 09:50; Stop 03/11/17 at 09:51; Status DC Dexamethasone Sodium Phosphate (Decadron Inj) 4 mg STK-MED ONCE .ROUTE ; Start 03/11/17 at 09:51; Stop 03/11/17 at 09:52; Status DC Morphine Sulfate (Morphine Inj) 4 mg STK-MED ONCE .ROUTE ; Start 03/11/17 at 12: 36; Stop 03/11/17 at 12:37; Status DC Morphine Sulfate (Morphine Inj) 4 mg STK-MED ONCE .ROUTE ; Start 03/11/17 at 12: 36; Stop 03/11/17 at 12:37; Status DC Morphine Sulfate (*morphine INJ PERIprocedure ONLY) 8 mg STK-MED ONCE .ROUTE Last administered on 03/11/17 12:39; Start 03/11/17 at 12:37; Stop 03/11/17 at 12: 38; Status DC Hydromorphone HCl (*DILAUDID PF INJ PERIprocedural ONLY) 1 mg STK-MED ONCE .ROUTE Last administered on 03/11/17 12:49; Start 03/11/17 at 12:48; Stop at 12:49; Status DC Hydromorphone HCl (*DILAUDID PF INJ PERIprocedural ONLY) 1 mg STK-MED ONCE .ROUTE Last administered on 03/11/17 13:00; Start 03/11/17 at 12:59; Stop at 13:00; Status DC Miscellaneous Information ALL NURSING DEPARTME... UNSCH PRN .XX SEE LABEL COMMENTS; Start 03/11/17 at 12:25; Stop 03/12/17 at 12:24 Hydromorphone HCl (*DILAUDID PF INJ PERIprocedural ONLY) 1 mg STK-MED ONCE .ROUTE Last administered on 03/11/17 13:35; Start 03/11/17 at 13:35; Stop at 13:36; Status DC Magnesium Hydroxide (Milk Of [place] Liq) 30 ml BID PRN PO CONSTIPATION Last administered on 03/12/17 06:05; Start 03/11/17 at 23:45 A/P Assessment and Plan - osteoarthritis of the left knee- s/p left total knee replacement continue pain control and PT- management per ortho. -anemia- post-op; will monitor H/H for now. -dyslipidemia; resume home meds upon discharge -DVT prophylaxis with subq Lovenox- per ortho Paige Moreira MD March 12, 2017 09:32
--- NOTE | 2017-03-12 10:13 | MP ---
cc: MICHELL OSUNA DATE OF SURGERY 03/11/2017 PREOPERATIVE DIAGNOSIS Left knee osteoarthritis POSTOPERATIVE DIAGNOSES Left knee osteoarthritis PROCEDURE Left total knee arthroplasty SURGEON Dr. Michell Osuna CASE WORK AIDE NEHEMIAH Kerr ANESTHESIA General femoral nerve block. ESTIMATED BLOOD LOSS 50 cc COMPLICATIONS None IMPLANTS USED DePuy Attune size 4 posterior stabilized femoral component, size 4 rotating platform tibia baseplate, size 7 mm polyethylene tibial insert, size 32 mm patella. JUSTIFICATION This patient is a 66-year-old female with a history severe end-stage osteoarthritis involving the left knee. She has severe disabling pain with standing, walking, ambulation and weight-bearing activities, even severe pain at rest. She has failed greater than three months of nonoperative conservative treatment include medication, therapy injections, ambulatory assistive aids, home exercise program, activity modification, weight-loss, exercise. X-RAYS OF THE LEFT KNEE Reveal severe end-stage osteoarthritis with joint space narrowing, subchondral sclerosis, subchondral cyst, osteophyte formation and varus deformity. The patient counseled as to the risks, benefits and alternative to a total knee arthroplasty. The risks of such to include, but limited to bleeding, infection damage to nerves, blood vessels, pain, stiffness, blood clots, pulmonary embolism, and even . The patient's pain is severe. She favored the benefits over the risks and did wish to proceed with surgery. PROCEDURE IN DETAIL A written consent was obtained. The patient identified by name, taken to the operating room, placed supine on the operating room table and general anesthesia was administered, as well as two grams of IV Ancef and one gram of IV vancomycin. She did receive a preoperative femoral nerve block. A well-padded tourniquet was placed on the left thigh. The left lower extremity prepped and draped using Isopropyl alcohol, Hibiclens solution and Chloraprep solution. After a time-out was performed, an Esmarch bandage was used use exsanguinate the left lower extremity. The tourniquet was inflated to 250 mmHg. A longitudinal incision was made over the anterior aspect of the left knee. A medial parapatellar arthrotomy was performed. The patella was everted. A patella resection guide was used to resect 7 mm of patella. A size 35 mm guide was placed. Three drill holes were placed and the 32-mm trial fit well. Attention was turned to the femur where an intramedullary guide hima was placed and the guide was set to remove 10 mm of the distal femur, 5 degrees off the anatomic valgus axis alignment. An oscillating saw was used to perform a distal femoral cut. Attention was turned to the tibia where an extramedullary tibial guide was used to resect 5 mm off the lowest portion of the medial tibial plateau. The tibial guide was pinned in place and a tibia cut was performed. A 5 mm spacer block showed full extension. Attention turned back to the femur where an AP sizing block measured at a size 4. The anterior reference 3 degree external rotation guide was used to pin a size [address]. Anterior, posterior and chamfer cuts were performed. A size 4 PCL box cut pinned in place. The PCL box cut with an oscillating saw. The medial and lateral meniscus remnants were removed as well as bone and soft tissue debris from the posterior portion of the knee. A size 4 tibia base plate was pinned in place. The tibia was drilled and punched. Trial components were evaluated and final components cemented in place. With the 7-mm tibial insert, the leg could achieve full extension at 0 degrees and flexion to 140, no evidence of tibial lift-off, varus-valgus balance appeared appropriate and symmetric and the patella was noted to track centrally. The tourniquet was deflated. Bovie cautery was used for hemostasis. The knee was thoroughly irrigated with sterile saline pulse lavage antibiotic impregnated solution. The arthrotomy incision was closed with #1 Vicryl sutures, subcutaneous tissues 2-0 Vicryl suture and skin was closed with Dermabond. Sterile dressings were applied. The patient tolerated the procedure well. No intraoperative complications were noted. Rashel Oconnor, Physician Caseworker Protective Services Certified was present during the entire procedure to include patient positioning and the procedure itself. The medical necessity of a physician accounts receivable assistant was indicated in this case due to the complexity of the procedure. He assisted with appropriate manipulation of the leg and also traction of muscles, bone and neurovascular structures. He assisted with both preparation of bone and also implantation of the prosthetic replacement. MD ELLIE Winters/SUJATHA /12:02 PM /10:02 AM
[2017-03-12] MEDS ORDERED: ENOXAPARIN SODIUM 40 MG/0.4 ML SYRINGE SQ SCH (11:30)
[2017-03-12] MEDS: SODIUM CHLOR 0.9% 1000 ML INJ 1,000 ML IV SCH ×2 (12:52→13:00)
[2017-03-12] MEDS: diphenhydrAMINE HCL 50 MG/ML VIAL IV PRN (15:23)
[2017-03-12] MEDS: DOCUSATE SODIUM 100 MG CAP PO SCH (19:18)
[2017-03-12] MEDS: MULTIVITAMINS/MINERALS THERAPEUTIC TAB PO SCH (19:18)
[2017-03-13 00:55] VITALS: BP 126/63; PULSE 105; RESP 17; TEMP 99.7; O2SAT 93
[2017-03-13] MEDS: diphenhydrAMINE HCL 50 MG/ML VIAL IV PRN (01:16)
[2017-03-13] MEDS: ACETAMINOPHEN/HYDROcodone 325 MG/7.5 MG TAB PO PRN ×2 (05:34→09:28)
[2017-03-13 07:08] LABS: HEMATOCRIT 31.6 % (35.0-46.0); MEAN CELL VOLUME 89.6 FL (80.0-100.0); MEAN CORPUSCULAR HEMOGLOBIN 29.8 PG (27.0-34.0); MEAN CORPUSCULAR HGB CONC 33.2 % (32.0-36.0); PLATELET COUNT 209 TH/MM3 (150-450); RED BLOOD COUNT 3.52 MIL/MM3 (4.00-5.30); REVIEW FLAG FINAL; WHITE BLOOD COUNT 8.3 TH/MM3 (4.0-11.0)
[2017-03-13 07:39] LABS: BICARBONATE 28.5 MEQ/L (21.0-32.0); POTASSIUM 3.8 MEQ/L (3.5-5.1)
[2017-03-13] MEDS: MULTIVITAMINS/MINERALS THERAPEUTIC TAB PO SCH (07:48)
[2017-03-13] MEDS: DOCUSATE SODIUM 100 MG CAP PO SCH (07:48)
[2017-03-13] MEDS: SODIUM CHLORIDE 0.9% FLUSH 5 ML FLUSH IVF SCH (07:48)
--- NOTE | 2017-03-13 07:54 | PD.ORT.PN ---
Subjective Post Op Day #: 2 Subjective Remarks pain under control. feeling better today. denies cp and sob. Objective Vitals Vital Signs Date Time Temp Pulse Resp B/P Pulse Ox O2 Delivery O2 Flow Rate FiO2 03/13/17 00:55 99.7 105 17 126/63 93 03/12/17 20:40 99.4 96 17 122/67 95 03/12/17 18:04 97 21 03/12/17 16:00 98.0 87 18 143/71 97 03/12/17 12:00 97.6 69 18 92/55 99 03/12/17 09:14 96 Nasal Cannula 3.00 03/12/17 08:17 Room Air I/O 03/12/17 03/12/17 03/12/17 03/13/17 03/13/17 03/13/17 07:00 15:00 23:00 07:00 15:00 23:00 Intake Total 1216 ml 720 ml 240 ml 480 ml Output Total 1900 ml Balance -684 ml 720 ml 240 ml 480 ml Intake Oral 240 ml 720 ml 240 ml 480 ml IV Total 976 ml Output Urine Total 1900 ml # Voids 2 3 3 # Bowel Movements 0 0 0 Result Diagram: 03/13/17 0531 03/13/17 0531 Objective Remarks in bed, nad dressing c/d/i neg homans nvi Assessment & Plan Ortho Post Op Day #: 2 Problem List: Assessment and Plan s/p L TKA wbat daily dressing changes lovenox rx in chart PT d/c planning home with c and pt - cleared for today f/up Sidney Gayle March 13, 2017 07:54
[2017-03-13 08:00] VITALS: BP 108/73; PULSE 106; RESP 18; TEMP 98.7; O2SAT 95
[2017-03-13 11:04] VITALS: O2SAT 95
--- NOTE | 2017-03-13 11:04 | HHI.PR ---
Subjective Remarks no new complaints. pain is controlled. Objective Vitals Vital Signs Date Time Temp Pulse Resp B/P Pulse Ox O2 Delivery O2 Flow Rate FiO2 03/13/17 08:00 98.7 106 18 108/73 95 03/13/17 00:55 99.7 105 17 126/63 93 03/12/17 20:40 99.4 96 17 122/67 95 03/12/17 18:04 97 21 03/12/17 16:00 98.0 87 18 143/71 97 03/12/17 12:00 97.6 69 18 92/55 99 I/O 03/12/17 03/12/17 03/12/17 03/13/17 03/13/17 03/13/17 07:00 15:00 23:00 07:00 15:00 23:00 Intake Total 1216 ml 720 ml 240 ml 480 ml Output Total 1900 ml Balance -684 ml 720 ml 240 ml 480 ml Intake Oral 240 ml 720 ml 240 ml 480 ml IV Total 976 ml Output Urine Total 1900 ml # Voids 2 3 3 # Bowel Movements 0 0 0 Result Diagram: 03/13/17 0531 03/13/17 0531 Imaging Last Impressions Knee X-Ray 03/11/17 0652 Signed Impressions: Service Date/Time: Saturday, March 11, 2017 12:55 - CONCLUSION: Satisfactory appearance post left TKA Frank Rivas MD Objective Remarks GENERAL: This is a well-nourished, well-developed patient, in no apparent distress. CARDIOVASCULAR: Regular rate and regular rhythm without murmurs, gallops, or rubs. RESPIRATORY: Clear to auscultation. Breath sounds equal bilaterally. No wheezes , rales, or rhonchi. GASTROINTESTINAL: Abdomen soft, non-tender, nondistended. Normal, active bowel sounds MUSCULOSKELETAL: left knee covered with clean dressing. NEURO: Alert & Oriented x4 to person, place, time, situation. Moves all ext x4 Medications and IVs Current Medications Pantoprazole Sodium 40 mg 40 mg DAILY PRN PO REFLUX; Start 03/11/17 at 07:00 Sodium Chloride (NS 1000 ml Inj) 1,000 ml @ 100 mls/hr Q10H IV Last administered on 03/11/17t 19:27; Start 03/11/17 at 06:52 IV Flush (NS Flush) 2 ml UNSCH PRN IVF FLUSH AFTER USING IV ACCESS; Start at 07:00 IV Flush 2 ml 2 ml BID IVF Last administered on 03/13/17 07:48; Start 03/11/17 at 09:00 Clindamycin Phosphate/Sodium Chloride (Cleocin Inj/NS Inj) 106 ml @ 212 mls/hr Q8H IV Last administered on 03/12/17 08:23; Start 03/11/17 at 17:00; Stop at 09:29; Status DC Miscellaneous Information (Post-op Orders (for Pharmacy)) STAT ONCE XX ; Start 03/11/17 at 07:00; Stop 03/11/17 at 13:04; Status DC Enoxaparin Sodium (Lovenox Inj) 40 mg Q24H SQ Last administered on 03/12/17 11: 52; Start 03/12/17 at 11:30; Stop 03/21/17 at 11:31 Hydromorphone HCl (Dilaudid Pf Inj) 1 mg Q3H PRN IV PAIN GREATER THAN 7; Start 03/11/17 at 07:00 Acetaminophen/ Hydrocodone Bitart ([place] 7.5-325 Mg) 1 tab Q4H PRN PO PAIN LESS THAN 5 ON SCALE; Start 03/11/17 at 07:00 Acetaminophen/ Hydrocodone Bitart ([place] 7.5-325 Mg) 2 tab Q4H PRN PO PAIN SCALE 5 TO 10 Last administered on 03/13/17 09:28; Start 03/11/17 at 07:00 Multivitamins/ Minerals Therapeutic (Theragran M Tab) 1 tab BID PO Last administered on 03/13/17 07:48; Start 03/12/17 at 21:00; Stop 05/11/17 at 20:59 Ondansetron HCl (Zofran Inj) 4 mg Q6H PRN IVP NAUSEA OR VOMITING; Start at 07:00 Docusate Sodium (Colace) 100 mg BID PO Last administered on 03/13/17 07:48; Start 03/12/17 at 21:00 Al Hydrox/Mg Hydrox/Simethicone (Mag-Al Plus Susp Liq) 30 ml Q6H PRN PO INDIGESTION; Start 03/11/17 at 07:00 Zolpidem Tartrate (Ambien) 5 mg HS PRN PO SLEEP; Start 03/11/17 at 07:00 Bisacodyl (Dulcolax Supp) 10 mg DAILY PRN RECTAL CONSTIPATION; Start 03/11/17 at 07:00 Naloxone HCl (Narcan Inj) 0.4 mg UNSCH PRN IV RESPIRATORY RATE LESS THAN 10; Start 03/11/17 at 07:00 Diphenhydramine HCl (Benadryl Inj) 25 mg Q6H PRN IV ITCHING Last administered on 03/13/17 01:16; Start 03/11/17 at 07:00 Povidone Iodine (Betadine 7.5% Scrub) 1 applic ONCE TOPICAL ; Start 03/11/17 at 07:30; Stop 03/14/17 at 07:29 Chlorhexidine Gluconate 1 applic 1 applic ONCE TOPICAL ; Start 03/11/17 at 07:30 ; Stop 03/14/17 at 07:29 Cefazolin Sodium/ Dextrose 50 ml @ 100 mls/hr SPINNERET PERSON IV ; Start 03/11/17 at 07 :30; Stop 03/11/17 at 08:07; Status DC Vancomycin HCl 1000 mg/Sodium Chloride 250 ml @ 250 mls/hr SPINNERET PERSON IV Last administered on 03/11/17 09:08; Start 03/11/17 at 07:30; Stop 03/14/17 at 07:29 Tranexamic Acid 1359 mg/Sodium Chloride 113.59 ml @ 200 mls/ hr ONCE IV Last administered on 03/11/17 10:14; Start 03/11/17 at 07:30; Stop 03/11/17 at 16:00; Status DC Ropivacaine 24.63 ml/Ketorolac Tromethamine 30 mg/Epinephrine HCl 0.5 mg/ Clonidine 80 mcg/ Sodium Chloride 100 ml @ 200 mls/hr ONCE P-ARTICULR Last administered on 03/11/17 11:10; Start 03/11/17 at 07:30; Stop 03/12/17 at 07:29; Status DC Tranexamic Acid/ Sodium Chloride (Cyklokapron Inj/ NS Inj) 130 ml @ 260 mls/hr ONCE P-ARTICULR Last administered on 03/11/17 11:11; Start 03/11/17 at 07:30; Stop 03/12/17 at 07:29; Status DC Dexamethasone Sodium Phosphate 10 mg 10 mg ONCE ONCE IV Last administered on 08:25; Start 03/11/17 at 07:45; Stop 03/11/17 at 07:46; Status DC Lactated Ringer's 1,000 ml @ 30 mls/hr Q24H PRN IV SEE LABEL COMMENTS; Start at 07:45; Stop 03/11/17 at 13:06; Status DC Sodium Chloride (NS 500 ml Inj) 500 ml @ 30 mls/hr [id number] PRN IV SEE LABEL COMMENTS; Start 03/11/17 at 07:45; Stop 03/11/17 at 13:06; Status DC Metoprolol Tartrate (Lopressor) 25 mg SPINNERET PERSON PRN PO SEE LABEL COMMENTS; Start 03/11/17 at 07:45; Stop 03/14/17 at 07:44 Povidone Iodine (Betadine 5% Antisepsis Kit) 1 applic SPINNERET PERSON PRN EACH NARE SEE LABEL COMMENTS; Start 03/11/17 at 07:45; Stop 03/14/17 at 07:44 Chlorhexidine Gluconate (Chlorhexidine 2% Cloth) 3 pack SPINNERET PERSON PRN TOPICAL SEE LABEL COMMENTS; Start 03/11/17 at 07:45; Stop 03/14/17 at 07:44 Insulin Human Regular (NovoLIN R INJ) See Protocol Table ... SPINNERET PERSON PRN SQ SEE PROTOCOL TABLE; Start 03/11/17 at 07:45; Stop 03/14/17 at 07:44 Gentamicin Sulfate 240 mg 240 mg STK-MED ONCE .ROUTE Last administered on 11:10; Start 03/11/17 at 08:03; Stop 03/11/17 at 08:05; Status DC Clindamycin Phosphate 900 mg/ Sodium Chloride 106 ml @ 212 mls/hr SPINNERET PERSON IV Last administered on 03/11/17 09:00; Start 03/11/17 at 08:15 Sodium Chloride (NS Inj) 100 ml @ As Directed STK-MED ONCE .ROUTE ; Start at 08:38; Stop 03/11/17 at 08:39; Status DC Acetaminophen (Ofirmev Inj) 1,000 mg STK-MED ONCE IV ; Start 03/11/17 at 09:50; Stop 03/11/17 at 09:51; Status DC Famotidine (Pepcid Inj) 20 mg STK-MED ONCE .ROUTE ; Start 03/11/17 at 09:50; Stop 03/11/17 at 09:51; Status DC Midazolam HCl (Versed Inj) 2 mg STK-MED ONCE .ROUTE ; Start 03/11/17 at 09:50; Stop 03/11/17 at 09:51; Status DC Fentanyl Citrate (fentaNYL INJ) 250 mcg STK-MED ONCE .ROUTE ; Start 03/11/17 at 09:50; Stop 03/11/17 at 09:51; Status DC Dexamethasone Sodium Phosphate (Decadron Inj) 4 mg STK-MED ONCE .ROUTE ; Start 03/11/17 at 09:51; Stop 03/11/17 at 09:52; Status DC Morphine Sulfate (Morphine Inj) 4 mg STK-MED ONCE .ROUTE ; Start 03/11/17 at 12: 36; Stop 03/11/17 at 12:37; Status DC Morphine Sulfate (Morphine Inj) 4 mg STK-MED ONCE .ROUTE ; Start 03/11/17 at 12: 36; Stop 03/11/17 at 12:37; Status DC Morphine Sulfate (*morphine INJ PERIprocedure ONLY) 8 mg STK-MED ONCE .ROUTE Last administered on 03/11/17 12:39; Start 03/11/17 at 12:37; Stop 03/11/17 at 12: 38; Status DC Hydromorphone HCl (*DILAUDID PF INJ PERIprocedural ONLY) 1 mg STK-MED ONCE .ROUTE Last administered on 03/11/17 12:49; Start 03/11/17 at 12:48; Stop at 12:49; Status DC Hydromorphone HCl (*DILAUDID PF INJ PERIprocedural ONLY) 1 mg STK-MED ONCE .ROUTE Last administered on 03/11/17 13:00; Start 03/11/17 at 12:59; Stop at 13:00; Status DC Miscellaneous Information ALL NURSING DEPARTME... UNSCH PRN .XX SEE LABEL COMMENTS; Start 03/11/17 at 12:25; Stop 03/12/17 at 12:24; Status DC Hydromorphone HCl (*DILAUDID PF INJ PERIprocedural ONLY) 1 mg STK-MED ONCE .ROUTE Last administered on 03/11/17 13:35; Start 03/11/17 at 13:35; Stop at 13:36; Status DC Magnesium Hydroxide (Milk Of [place] Zhao) 30 ml BID PRN PO CONSTIPATION Last administered on 03/12/17 19:18; Start 03/11/17 at 23:45 A/P Assessment and Plan - osteoarthritis of the left knee- s/p left total knee replacement continue pain control and PT- management per ortho. -anemia- post-op; H/H stable. -dyslipidemia; resume home meds upon discharge -DVT prophylaxis with subq Lovenox- per ortho Discharge Planning dc planning per ortho. Paige Moreira MD March 13, 2017 11:04
--- NOTE | 2017-03-13 12:16 | MD ---
cc: MICHELL OSUNA ADMISSION DATE: 03/11/2017 DISCHARGE DATE: 03/13/2017 ADMITTING DIAGNOSIS Severe degenerative osteoarthritis, left knee. DISCHARGE DIAGNOSIS Severe degenerative osteoarthritis, left knee. HISTORY OF PRESENT ILLNESS Ms. Rasheed is a 66-year-old female who presented to the [facility] for evaluation by Dr. Michell Osuna regarding her severe and progressive left knee pain. The patient states her left knee pain has been severe for greater than six months duration. She notes it is aggravated with weightbearing activities and is currently inhibiting her activities of daily living. She notes she has no alleviating factors at this point in time, although in the past she has tried medications, bracing, weight loss attempts, physical therapy, home exercise program and corticosteroid injections without relief of symptoms. She does have x-ray evidence of severe degenerative osteoarthritis of the left knee. While in the office the patient was counseled on her diagnosis and treatment options. The risks, benefits and indications were all discussed. The patient elected to proceed with surgical intervention to include a left total knee arthroplasty. Date of surgery 03/11/2017: Left total knee arthroplasty. POST-OP After surgery the patient was admitted to [facility] where she received appropriate medical management, pain control and DVT prophylaxis as well as physical therapy. DISCHARGE Once being discharged from the hospital the patient is cleared to go home where she will receive home health care and home physical therapy. She is in stable condition. She may weight bear as tolerated. The patient has been instructed on appropriate wound care management and will receive daily dressing changes. She has been provided prescriptions for pain control as well as DVT prophylaxis medication. She has been provided a follow-up appointment to see Dr. Michell Osuna in the office approximately two weeks from the date of surgery. The patient has asked appropriate questions which have been answered. The patient is cleared for discharge. Dictated by: Michell Oconnor PA-C MD ELLIE Winters/LEYDA /7:58 AM /12:14 PM
== END 2017-03-13 11:05 | disposition home health service (06) | DRG 470 ==
LOC: HSDI 03-11 06:48 → EDUNIT# 03-11 10:00 → N06B 03-11 14:32
PROVIDERS: ADMIT Orthopaedic Surgery Sports Medicine; ATTEND Orthopaedic Surgery Sports Medicine
PROC: 3E0T3CZ (ICD-10-PCS; 2017-03-11)
PROC: 0SRD0J9 Replacement of Left Knee Joint with Synthetic Substitute, Cemented, Open Approach (ICD-10-PCS; principal; 2017-03-11 09:57)
DX: M17.12 Unilateral primary osteoarthritis, left knee (principal); E78.5 Hyperlipidemia, unspecified; D64.9 Anemia, unspecified; M21.162 Varus deformity, not elsewhere classified, left knee
CPT/HCPCS: 73560; 80048; 85027; 86850; 86900; 86901; 94150; C1776; C9290; J0131; J0171; J0735; J1100; J1170; J1200; J1580; J1650; J1885; J2250; J2270; J2405; J2710; J2795; J3010; J3370; J7030; J7050; L1830

== ENCOUNTER → 2017-02-18 | Outpatient (CLI) | payer MEDICARE, BC ==
[~2017-02-18] MED LIST: ASPI1TAB69 PO; ASPI81CH37 CHEW; COMMODE 3-IN-11 MIS; CPMMACHINE; ENOX40P SQ; HYDR-3288 PO; MULTCAP13 PO; OMEG100037 PO; PANT40TA3 PO; TYLE650T9 PO; WALKER WHEELS/F1 MIS; ZOCO20TA PO; ZYRT10CA PO
[2017-02-18 12:44] LABS: AUTOMATED NEUTROPHIL # 3.7 TH/MM3 (1.8-7.7); BASOPHIL # 0.1 TH/MM3 (0-0.2); BASOPHIL % 1.3 % (0.0-2.0); EOSINOPHIL # 0.2 TH/MM3 (0-0.4); EOSINOPHIL % 2.1 % (0.0-4.0); HEMATOCRIT 39.7 % (35.0-46.0); HEMO FLAGS DIFF FINAL; LYMPH % 33.7 % (9.0-44.0); LYMPHOCYTE # 2.4 TH/MM3 (1.0-4.8); MEAN CELL VOLUME 89.5 FL (80.0-100.0); MEAN CORPUSCULAR HEMOGLOBIN 29.8 PG (27.0-34.0); MEAN CORPUSCULAR HGB CONC 33.3 % (32.0-36.0); MONO % 11.9 % (0.0-8.0); PLATELET COUNT 271 TH/MM3 (150-450); RED BLOOD COUNT 4.44 MIL/MM3 (4.00-5.30); WHITE BLOOD COUNT 7.2 TH/MM3 (4.0-11.0)
--- NOTE | 2017-02-18 12:51 | RADRPT ---
EXAM DATE/TIME: 02/18/2017 12:34 [facility] COMPARISON: No previous studies available for comparison. INDICATIONS : Evaluate for pneumonia, pneumothorax or communicable disease. Pre op left knee replacement. MEDICAL HISTORY : None. SURGICAL HISTORY : None. ENCOUNTER: Initial ACUITY: 1 day PAIN SCORE: 0/10 LOCATION: Bilateral chest FINDINGS: PA and lateral views of the chest demonstrate the lungs to be symmetrically aerated without evidence of mass, infiltrate or effusion. The cardiomediastinal contours are unremarkable. Osseous structure s are intact. CONCLUSION: Normal examination. Pritesh Dale MD on February 18, 2017 at 12:50 Board Certified Radiologist. This report was verified electronically.
[2017-02-18 12:52] LABS: APTT (PATIENT) 25.4 SEC (24.3-30.1); PROTHROMBIN TIME - PATIENT 10.5 SEC (9.8-11.6)
[2017-02-18 12:58] LABS: BLOOD, URINE NEG (NEG); COMMENT (UR) CULT NOT INDICATED; CULTURE IF INDICATED CULT NOT INDICATED; GLUCOSE,URINE NEG (NEG); KETONE, URINE NEG (NEG); MUCUS URINE FEW /lpf (OCC); NITRITE,URINE NEG (NEG); SQUAMOUS EPITHELIAL CELL URINE <1 /hpf (0-5); URINE COLOR LIGHT-YELLOW (YELLW/STRAW)
[2017-02-18 13:03] LABS: WESTERGREN SEDIMENTATION RATE 5 mm/hr (0-30)
[2017-02-18 13:24] LABS: ALKALINE PHOSPHATASE 58 U/L (45-117); ALT (GPT) 32 U/L (10-53); ANION GAP 7 MEQ/L (5-15); AST (GOT) 19 U/L (15-37); BICARBONATE 30.8 MEQ/L (21.0-32.0); BLOOD UREA NITROGEN 10 MG/DL (7-18); CHLORIDE 103 MEQ/L (98-107); GLOMERULAR FILTRATION RATE 83 ML/MIN (>89); GLUCOSE,FASTING 107 MG/DL (74-99); POTASSIUM 3.9 MEQ/L (3.5-5.1); SODIUM (NA) 141 MEQ/L (136-145); TOTAL BILIRUBIN ADULT 0.2 MG/DL (0.2-1.0)
--- NOTE | 2017-02-19 11:51 | EKG ---
Date Performed: 02/18/2017 Time Performed: 11:57:49 PTAGE: 66 years EKG: Sinus rhythm NORMAL ECG NO PREVIOUS TRACING DOCTOR: Miguel Hamilton Interpretating Date/Time 02/19/2017 11:45:33
== END ==
LOC: CPRE 11:31
PROVIDERS: ATTEND Orthopaedic Surgery Sports Medicine
DX: Z01.810 Encounter for preprocedural cardiovascular examination (principal); Z01.811 Encounter for preprocedural respiratory examination; Z01.812 Encounter for preprocedural laboratory examination; Z01.818 Encounter for other preprocedural examination; Z96.60 Presence of unspecified orthopedic joint implant; Z79.01 Long term (current) use of anticoagulants; M17.12 Unilateral primary osteoarthritis, left knee; M25.50 Pain in unspecified joint
CPT/HCPCS: 36415; 71020; 80053; 81001; 85025; 85610; 85652; 85730; 93005